=== PATIENT | female | born 1970 | race Caucasian/White ===

== ENCOUNTER 2017-01-27 09:21 | Day surgery (SDC) | payer BC ==
[2017-01-24 14:40] LABS: BASOPHILS 0.2 %; BASOPHILS ABSOLUTE 0.01 10/3/uL (0.0-0.16); EOSINOPHILS 1.1 %; EOSINOPHILS ABSOLUTE 0.06 10/3/uL (0.0-0.53); HEMATOCRIT 38.4 % (36.0-48.0); HEMOGLOBIN 12.9 g/dL (12.0-16.0); IMMATURE GRANULOCYTES 0.2 %; IMMATURE GRANULOCYTES ABSOLUTE 0.01 10/3/uL (0.0-0.11); LYMPHOCYTES 51.5 %; LYMPHOCYTES ABSOLUTE 2.85 10/3/uL (0.67-4.30); MEAN CORPUS HGB CONC 33.6 g/dL (32.0-36.0); MEAN CORPUSCULAR HEMOGLOB 27.3 pg (26.0-34.0); MEAN PLATELET VOLUME 8.9 fL (9.2-13.0); MONOCYTES 4.5 %; MONOCYTES ABSOLUTE 0.25 10/3/uL (0.21-1.20); NEUTROPHILS 42.5 %; NEUTROPHILS ABSOLUTE 2.35 10/3/uL (2.02-8.40); PLATELET COUNT 218 10/3/uL (150-400); RBC DISTRIBUTION WIDTH 13.5 % (12.0-16.0); RED CELL COUNT 4.72 10/6/uL (4.0-5.6); WHITE BLOOD CELLS 5.5 10/3/uL (4.5-10.5)
[2017-01-24 14:42] LABS: MANUAL DIFF NO %; MEAN CORPUSCULAR VOLUME 81.4 fL (80-100)
[2017-01-24 14:51] LABS: BUN (BLOOD UREA NITROGEN) 16 MG/DL (6-23); CALCIUM, SERUM 9.1 MG/DL (8.5-10.4); CHLORIDE, SERUM 106 MMOL/L (96-112); GFR AFRICAN AMERICAN 89 ML/MIN (>=60); GFR NON AFRICAN AMERICAN 77 ML/MIN (>=60); POTASSIUM, SERUM 3.9 MMOL/L (3.5-5.3); SODIUM, SERUM 141 MMOL/L (135-148)
[2017-01-24 14:52] LABS: CO2 (CARBON DIOXIDE) 24 MMOL/L (24-34); GLUCOSE, SERUM 278 MG/DL (60-99)
--- NOTE | ~2017-01-27 | OP ---
Record Of Operation [facility] [address] [place]. [address] NAME: ALISHA ALEX : 70 STATUS : [facility]#: [id number] AGE: 46 ADM/REG DATE : 01/27/17 MR#: [id number] REPORT SERV DATE: 01/29/17 DICTATED BY: MIKE ALVARADO DATE: 01/29/17 REPORT STATUS : Draft TRANSCRIBED BY: MODEarnest DATE: 01/29/17 DATE OF PROCEDURE: 01/27/2017 PREOPERATIVE DIAGNOSES: 1. An ER positive breast tumor and a breast cancer. 2. The patient is on tamoxifen. POSTOPERATIVE DIAGNOSIS: Multiple adhesions with endometrial polyps that were benign on frozen section. PROCEDURE: 1. Laparoscopic hysterectomy with bilateral salpingo-oophorectomy via the da Vincent laparoscopic robotic instrument, CPT code 07927. 2. Extensive lysis of adhesions CPT code 50287. SURGEON: Mike Alvarado M.D. MANUFACTURING ADVISOR: Libby. ESTIMATED BLOOD LOSS: 25 mL. FLUIDS IN: 2100 mL of crystalloid. COMPLICATIONS: None. ANESTHESIA: General endotracheal. INDICATIONS AND FINDINGS: This is a 46-year-old female, who has a history of an ER positive breast cancer. She is on tamoxifen, and she has requested removal of the uterus and ovaries. Intraoperatively, she was found to have multiple adhesions specifically of the omentum to the anterior abdominal wall with colon adherent to the left pelvis and the bladder adherent to the anterior portion of the uterus. Extensive lysis of adhesions was required which encompassed greater than 50% of the entire operative time. The uterus was removed intact and examined on the back table. There were multiple polyps in the endometrium. Therefore, frozen section was obtained which returned benign. Postprocedure, a cystoscopy was performed with excellent bilateral ureteral jets. No evidence of bladder defect. Prior to induction of anesthesia, she was given Lovenox for DVT prophylaxis. She was also given prophylactic antibiotics. PROCEDURE IN DETAIL: The patient was taken to the operating room. She was placed in supine position for administration of general anesthesia. She was then placed in dorsal lithotomy position and prepped and draped in usual sterile fashion. A FRANCISCO uterine manipulator was placed through the uterine cervix and out the fundus and a TELMA ring was sutured to the patient's cervix. Our attention was then turned towards the anterior abdominal wall where an incision was made approximately 25 cm above the pubic symphysis and taken down to the underlying layer of fascia. The fascia was grasped with two sutures of 0 Vicryl, tented up, Record Of Operation [facility] [address] [place]. [address] NAME: ALISHA ALEX : 70 STATUS : [facility]#: [id number] AGE: 46 ADM/REG DATE : 01/27/17 MR#: [id number] REPORT SERV DATE: 01/29/17 DICTATED BY: MIKE ALVARADO DATE: 01/29/17 REPORT STATUS : Draft TRANSCRIBED BY: MODL DATE: 01/29/17 and entered sharply. The perineum was then tented up and entered sharply, and a laparoscopic trocar was placed under direct visualization. The abdominal cavity was insufflated with CO2. Two additional 8 mm trocars were placed, one additional 12 mm trocar was placed. The patient was then docked to the laparoscopic robotic instrument, and the remainder of the procedure was performed via the da Vincent. Again, there were multiple adhesions noted specifically of the omentum and colon. These adhesions were taken down with sharp dissection requiring greater than 50% of entire operative time to remove. Anteriorly, there are also adhesions on the bladder. These adhesions were taken down as well as the bladder flap was created and taken down to a level well below the cervix. The retroperitoneal spaces were opened via the round ligaments which were grasped with bipolar cautery, cauterized and transected bilaterally. The gonadal vessels were isolated. Hemoclips were placed to ensure long-term hemostasis. They were then coagulated and transected bilaterally. The uterine arteries were identified at their origin. Hemoclips were placed to ensure long-term hemostasis. Uterine arteries were then skeletonized at the level of the cervix, grasped with bipolar cautery, cauterized and transected bilaterally. The uterosacral cardinal complex was then taken down with unipolar cautery, and circumferential incision was made around the cervix and vagina and the uterus, tubes, ovaries, and cervix were delivered through the vagina with the above findings noted. The pelvis was irrigated with copious amounts of warm water. The vaginal cuff was closed with a running stitch of #1 PDS V-Loc. Excellent hemostasis was assured. The laparoscopic instruments were removed. The initial incision was closed with 0 Vicryl at the fascia. The 12 mm port was also closed with 0 Vicryl at the fascia. The 8 mm ports were closed with 4-0 Monocryl at the skin, and Dermabond was placed. Postprocedure, a cystoscopy was performed with the above findings noted. At the completion of the procedure, the anesthesia was reversed. The patient was extubated and brought to the recovery room in stable condition. NENA/CARLITOS Mike Alvarado M.D. / [id number] CC: Carolyn Ferrara M.D.
[~2017-01-27 09:21] MED LIST: AT25 PO; ATV1 PO; AUG875 PO; BACDS PO; BACTROINT TOP; CELEXA20 PO; EFFEX37.5 PO; FORTAMET1000 MG PO; K500 PO; MOBIC15 MG PO; MULTIVIT/MIN PO; NEOSPORIN OINT15 GM T; NEUR300 PO; NOLV10 PO; PCET PO; PERCOCET1 TA2 PO; PR25 PO; PROZAC PO; TAMOXIFEN20 M1 PO; TESS PO; X5 PO; ZOCOR40 PO; ZOFRAN ODT4 MG PO
== END 2017-01-27 21:10 | disposition home or self-care (01) ==
LOC: SDC 09:21
PROVIDERS: Obstetrics & Gynecology Gynecologic Oncology
PROC: 0UT74ZZ Resection of Bilateral Fallopian Tubes, Percutaneous Endoscopic Approach (ICD-10-PCS; 2017-01-27)
PROC: 0UT94ZZ Resection of Uterus, Percutaneous Endoscopic Approach (ICD-10-PCS; principal; 2017-01-27 11:15)
PROC: 0UTC4ZZ Resection of Cervix, Percutaneous Endoscopic Approach (ICD-10-PCS; 2017-01-27 11:15)
PROC: 0UT24ZZ Resection of Bilateral Ovaries, Percutaneous Endoscopic Approach (ICD-10-PCS; 2017-01-27 11:15)
DX: N93.9 Abnormal uterine and vaginal bleeding, unspecified (principal); E78.00 Pure hypercholesterolemia, unspecified; E66.9 Obesity, unspecified; K21.9 Gastro-esophageal reflux disease without esophagitis; M19.90 Unspecified osteoarthritis, unspecified site; K58.9 Irritable bowel syndrome, unspecified; E11.9 Type 2 diabetes mellitus without complications; F32.9 Major depressive disorder, single episode, unspecified; D64.9 Anemia, unspecified; Z85.3 Personal history of malignant neoplasm of breast; Z88.1 Allergy status to other antibiotic agents
CPT/HCPCS: 36415; 71020; 80048; 82962; 84703; 85025; 86850; 86900; 86901; 88112; 88305; 88309; 88331; 88332; 88341; 88342; 88360; 93005; A9270-GY; C1729; J0694; J1170; J1885; J2250; J2405; J2710; J3010